=== PATIENT | male | born 1995 | race African-American/Black ===

== ENCOUNTER 2017-10-07 11:04 | Emergency (ER) | payer MEDICAID ==
[~2017-10-07] VITALS: Ht 180.3 cm; Wt 62.6 kg
[2017-10-07 11:08] VITALS: Ht 180.3 cm; Wt 62.6 kg
[2017-10-07 13:04] VITALS: BP 148/70
[2017-10-07 13:22] LABS: microscopic required? YES; urine erythrocyte NEGATIVE (NEGATIVE)
== END 2017-10-07 13:04 | disposition home or self-care (01) ==
LOC: ED 11:04
PROVIDERS: Emergency Medicine
DX: A56.01 Chlamydial cystitis and urethritis (principal)
CPT/HCPCS: 87491; 87591; J0696; J2001